=== PATIENT | female | born 1955 | race Caucasian/White ===

== ENCOUNTER 2017-08-30 20:54 | Inpatient (IN) | payer MEDICAID ==
[~2017-08-30] VITALS: Ht 170.2 cm; Wt 63.1 kg
[2017-08-30 21:57] LABS: BASOPHILS % (AUTO) 0.6 % (0.0-2.0); EOSINOPHILS % (AUTO) 1.8 % (1.0-6.0); HEMATOCRIT 35.8 % (36-46); HEMOGLOBIN 11.8 g/dL (12.0-16.0); LYMPHOCYTES # (AUTO) 1.2 K/uL (1.0-4.8); LYMPHOCYTES % (AUTO) 19.1 % (22.0-44.0); MEAN CORPUSCULAR HEMOGLOBIN 28.7 pg (26.0-34.0); MEAN CORPUSCULAR VOLUME 87 fL (80-100); MONOCYTES # (AUTO) 0.9 K/uL (0.1-1.0); MONOCYTES % (AUTO) 13.7 % (2.0-9.0); NEUTROPHILS # (AUTO) 4.2 K/uL (1.8-7.7); NEUTROPHILS % (AUTO) 64.8 % (40.0-70.0); PLATELET COUNT (AUTO) 287 K/uL (150-450); RED BLOOD CELL COUNT(AUTO) 4.12 MIL/uL (4.00-5.20); RED CELL DISTRIBUTION WIDTH 15.6 % (11.5-14.5)
[2017-08-30 22:06] LABS: ANION GAP 11 mmol/L (8-16); CALCIUM, TOTAL 8.9 mg/dL (8.8-10.5); CARBON DIOXIDE 29 mmol/L (22-29); CHLORIDE 102 mmol/L (98-107); CREATININE 0.67 mg/dL (0.60-1.30); GLOMERULAR FILTR. RATE CALC > 60 mL/min (>60); GLUCOSE,RANDOM 97 mg/dL (70-110); POTASSIUM 3.5 mmol/L (3.5-5.1); SODIUM SERUM 142 mmol/L (136-145); UREA NITROGEN, BLOOD 21 mg/dL (7-18)
[2017-08-30 22:12] LABS: ALANINE AMINOTRANSFERASE 58 U/L (12-78); ALBUMIN 3.6 g/dL (3.4-5.0); ALKALINE PHOSPHATASE 73 U/L (46-116); ASPARTATE AMINOTRANSFERASE 68 U/L (15-37); BILIRUBIN,TOTAL 0.6 mg/dL (0.1-1.0); TOTAL PROTEIN, SERUM 7.3 g/dL (6.4-8.2)
[2017-08-31] MEDS ORDERED: HALOPERIDOL 5 MG TABLET PO PRN (02:15)
[2017-08-31 04:36] VITALS: BP 130/81
[2017-08-31 04:40] VITALS: BP 130/81
[2017-08-31 08:38] VITALS: BP 117/80
[2017-08-31] MEDS: BACITRACIN 28.4 GM OINTMENT TP SCH ×2 (09:20→17:50)
[2017-08-31] MEDS: NICOTINE 14 MG/24 HOUR PATCH TD SCH (09:20)
[2017-08-31 09:50] LABS: HEMOGLOBIN A1C 5.7 % (4.5-6.2)
[2017-08-31 10:30] LABS: FREE T4 (FREE THYROXINE) 1.44 ng/dL (0.76-1.46); THYROID STIMULATING HORMONE 0.82 uIU/mL (0.36-3.74)
[2017-08-31 16:15] VITALS: BP 114/76
[2017-09-01] MEDS: FERROUS SULFATE 325 MG EC TABLET PO SCH ×2 (06:25→17:00)
[2017-09-01 08:18] VITALS: BP 126/74
[2017-09-01] MEDS: BACITRACIN 28.4 GM OINTMENT TP SCH ×2 (09:00→17:00)
[2017-09-01] MEDS: HALOPERIDOL 5 MG TABLET PO SCH ×2 (09:00→17:00)
[2017-09-01] MEDS: BENZTROPINE MESYLATE 0.5 MG TABLET PO SCH ×2 (09:00→17:00)
[2017-09-01] MEDS: NICOTINE 14 MG/24 HOUR PATCH TD SCH (09:01)
[2017-09-01 16:13] VITALS: BP 135/79
[2017-09-02] MEDS: FERROUS SULFATE 325 MG EC TABLET PO SCH ×2 (06:19→16:38)
[2017-09-02] MEDS: BACITRACIN 28.4 GM OINTMENT TP SCH ×2 (08:21→16:38)
[2017-09-02] MEDS: NICOTINE 14 MG/24 HOUR PATCH TD SCH (08:21)
[2017-09-02] MEDS: HALOPERIDOL 5 MG TABLET PO SCH ×2 (08:23→16:37)
[2017-09-02] MEDS: BENZTROPINE MESYLATE 0.5 MG TABLET PO SCH ×2 (08:23→16:38)
[2017-09-02 16:36] VITALS: BP 128/72
[2017-09-02] MEDS: LORazepam 2 MG TABLET PO PRN (16:38)
[2017-09-02] MEDS: ZOLPIDEM TARTRATE 10 MG TABLET PO PRN (21:09)
[2017-09-03] MEDS: FERROUS SULFATE 325 MG EC TABLET PO SCH ×2 (06:42→17:12)
[2017-09-03 06:50] VITALS: BP 124/66
[2017-09-03 08:00] VITALS: BP 124/70
[2017-09-03] MEDS: BENZTROPINE MESYLATE 0.5 MG TABLET PO SCH ×2 (08:05→17:11)
[2017-09-03] MEDS: HALOPERIDOL 5 MG TABLET PO SCH ×2 (08:05→17:00)
[2017-09-03] MEDS: NICOTINE 14 MG/24 HOUR PATCH TD SCH (08:06)
[2017-09-03] MEDS: BACITRACIN 28.4 GM OINTMENT TP SCH ×2 (08:06→17:12)
[2017-09-03 16:00] VITALS: BP 127/61
[2017-09-03] MEDS: ZOLPIDEM TARTRATE 10 MG TABLET PO PRN (20:33)
[2017-09-04] MEDS: FERROUS SULFATE 325 MG EC TABLET PO SCH ×2 (06:24→16:27)
[2017-09-04 08:28] VITALS: BP 112/66
[2017-09-04] MEDS: BENZTROPINE MESYLATE 0.5 MG TABLET PO SCH ×2 (10:01→16:27)
[2017-09-04] MEDS: HALOPERIDOL 5 MG TABLET PO SCH ×2 (10:01→16:27)
[2017-09-04] MEDS: BACITRACIN 28.4 GM OINTMENT TP SCH ×2 (10:02→16:27)
[2017-09-04] MEDS: NICOTINE 14 MG/24 HOUR PATCH TD SCH (10:09)
[2017-09-04] MEDS: LORazepam 2 MG TABLET PO PRN (16:27)
[2017-09-04 16:28] VITALS: BP 114/68
[2017-09-05] MEDS: FERROUS SULFATE 325 MG EC TABLET PO SCH ×2 (06:00→16:32)
[2017-09-05 06:11] VITALS: BP 109/70
[2017-09-05] MEDS: BENZTROPINE MESYLATE 0.5 MG TABLET PO SCH ×2 (08:10→16:32)
[2017-09-05] MEDS: HALOPERIDOL 5 MG TABLET PO SCH (08:10)
[2017-09-05] MEDS: NICOTINE 14 MG/24 HOUR PATCH TD SCH (08:11)
[2017-09-05] MEDS: BACITRACIN 28.4 GM OINTMENT TP SCH ×2 (08:11→16:33)
[2017-09-05 08:57] VITALS: BP 124/55
[2017-09-05 09:03] LABS: CHOL/HDL RATIO 2.9 (3.9-5.7); FREE T4 (FREE THYROXINE) 1.03 ng/dL (0.76-1.46); THYROID STIMULATING HORMONE 2.04 uIU/mL (0.36-3.74)
[2017-09-05 10:01] LABS: HEMOGLOBIN A1C 5.7 % (4.5-6.2)
[2017-09-05 16:19] VITALS: BP 115/69
[2017-09-05] MEDS: LORazepam 2 MG TABLET PO PRN (16:32)
[2017-09-05] MEDS: HALOPERIDOL 10 MG TABLET PO SCH ×2 (16:32→21:32)
[2017-09-06] MEDS: FERROUS SULFATE 325 MG EC TABLET PO SCH ×2 (06:34→16:40)
[2017-09-06 08:16] VITALS: BP 114/63
[2017-09-06] MEDS: BENZTROPINE MESYLATE 0.5 MG TABLET PO SCH ×2 (09:17→16:40)
[2017-09-06] MEDS: HALOPERIDOL 10 MG TABLET PO SCH ×3 (09:17→16:40)
[2017-09-06] MEDS: NICOTINE 14 MG/24 HOUR PATCH TD SCH (09:17)
[2017-09-06] MEDS: BACITRACIN 28.4 GM OINTMENT TP SCH ×2 (09:17→16:46)
[2017-09-06] MEDS: LORazepam 2 MG TABLET PO PRN (16:40)
[2017-09-06 17:39] VITALS: BP 112/68
[2017-09-07] MEDS: FERROUS SULFATE 325 MG EC TABLET PO SCH ×2 (06:47→16:44)
[2017-09-07 07:12] VITALS: BP 110/62
[2017-09-07 08:00] VITALS: BP 94/54
[2017-09-07] MEDS: HALOPERIDOL 10 MG TABLET PO SCH ×2 (09:28→16:44)
[2017-09-07] MEDS: BENZTROPINE MESYLATE 0.5 MG TABLET PO SCH ×2 (09:28→16:44)
[2017-09-07] MEDS: NICOTINE 14 MG/24 HOUR PATCH TD SCH (09:29)
[2017-09-07] MEDS: BACITRACIN 28.4 GM OINTMENT TP SCH ×2 (09:29→17:13)
[2017-09-07 16:09] VITALS: BP 151/75
[2017-09-08] MEDS: FERROUS SULFATE 325 MG EC TABLET PO SCH ×2 (06:15→16:38)
[2017-09-08 06:27] VITALS: BP 136/81
[2017-09-08] MEDS ORDERED: HALOPERIDOL DECANOATE 100 MG/ML VIAL IM SCH (09:00)
[2017-09-08] MEDS: BENZTROPINE MESYLATE 0.5 MG TABLET PO SCH ×2 (09:30→16:38)
[2017-09-08] MEDS: HALOPERIDOL 10 MG TABLET PO SCH ×2 (09:30→16:37)
[2017-09-08] MEDS: BACITRACIN 28.4 GM OINTMENT TP SCH ×3 (09:30→17:43)
[2017-09-08] MEDS: LORazepam 2 MG TABLET PO PRN ×2 (09:30→16:37)
[2017-09-08] MEDS: NICOTINE 14 MG/24 HOUR PATCH TD SCH (09:30)
[2017-09-08 16:07] VITALS: BP 118/70
[2017-09-09] MEDS: FERROUS SULFATE 325 MG EC TABLET PO SCH ×2 (06:53→16:15)
[2017-09-09] MEDS: BACITRACIN 28.4 GM OINTMENT TP SCH ×2 (08:39→16:15)
[2017-09-09] MEDS: HALOPERIDOL 10 MG TABLET PO SCH ×2 (08:39→16:15)
[2017-09-09] MEDS: BENZTROPINE MESYLATE 0.5 MG TABLET PO SCH ×2 (08:39→16:15)
[2017-09-09] MEDS: NICOTINE 14 MG/24 HOUR PATCH TD SCH (08:39)
[2017-09-09 09:04] VITALS: BP 99/62
[2017-09-09 09:25] VITALS: BP 118/68
[2017-09-09] MEDS: LORazepam 2 MG TABLET PO PRN ×2 (09:28→16:15)
[2017-09-09 16:32] VITALS: BP 102/62
[2017-09-10 03:33] VITALS: BP 114/63
[2017-09-10] MEDS: FERROUS SULFATE 325 MG EC TABLET PO SCH ×2 (06:42→16:27)
[2017-09-10 08:57] VITALS: BP 112/71
[2017-09-10] MEDS: BENZTROPINE MESYLATE 0.5 MG TABLET PO SCH ×2 (09:03→16:27)
[2017-09-10] MEDS: LORazepam 2 MG TABLET PO PRN ×2 (09:03→16:27)
[2017-09-10] MEDS: BACITRACIN 28.4 GM OINTMENT TP SCH ×2 (09:03→17:10)
[2017-09-10] MEDS: HALOPERIDOL 10 MG TABLET PO SCH ×2 (09:03→16:27)
[2017-09-10] MEDS: NICOTINE 14 MG/24 HOUR PATCH TD SCH (09:03)
[2017-09-10 16:27] VITALS: BP 110/62
[2017-09-11] MEDS: FERROUS SULFATE 325 MG EC TABLET PO SCH (06:16)
[2017-09-11 06:49] VITALS: BP 104/68
[2017-09-11 08:36] VITALS: BP 123/81
[2017-09-11] MEDS: BENZTROPINE MESYLATE 0.5 MG TABLET PO SCH (08:59)
[2017-09-11] MEDS: HALOPERIDOL 10 MG TABLET PO SCH (08:59)
[2017-09-11] MEDS: NICOTINE 14 MG/24 HOUR PATCH TD SCH (09:00)
[2017-09-11] MEDS: BACITRACIN 28.4 GM OINTMENT TP SCH (09:00)
[2017-09-11] MEDS: LORazepam 2 MG TABLET PO PRN (09:00)
== END 2017-09-11 13:30 | disposition home or self-care (01) | DRG 751 ==
LOC: EMS 20:55 → B3A 08-31 02:00
PROVIDERS: ADMIT Psychiatry & Neurology Psychiatry; ATTEND Psychiatry & Neurology Psychiatry
DX: F29 Unspecified psychosis not due to a substance or known physiological condition (principal); F25.9 Schizoaffective disorder, unspecified; D64.9 Anemia, unspecified; F17.200 Nicotine dependence, unspecified, uncomplicated; F41.9 Anxiety disorder, unspecified; S60.819A Abrasion of unspecified wrist, initial encounter; Z59.0 Homelessness; F94.0 Selective mutism; X58.XXXA Exposure to other specified factors, initial encounter; Y93.89 Activity, other specified; Y92.89 Other specified places as the place of occurrence of the external cause; Y99.8 Other external cause status; Z91.19 Patient's noncompliance with other medical treatment and regimen; Z91.14 Patient's other noncompliance with medication regimen; R74.0 Nonspecific elevation of levels of transaminase and lactic acid dehydrogenase [LDH]; Z71.6 Tobacco abuse counseling
CPT/HCPCS: 80074; 83036; 84439; 84443; 99285; G0480; J1631